=== PATIENT | female | born 1935 | race Caucasian/White ===

== ENCOUNTER 2022-07-10 10:12 | Emergency (ER) | payer OTHER, MEDICARE ==
[~2022-07-10] VITALS: Ht 152.4 cm; Wt 76.2 kg
[2022-07-10] MEDS ORDERED: ACETAMINOPHEN 325 MG TAB PO ONE (14:00)
[2022-07-10] MEDS ORDERED: HYDROCODONE/APAP 7.5MG-325MG 1 EA TAB PO STA (14:13)
[2022-07-10] MEDS ORDERED: ONDANSETRON HCL INJ 2MG/ML 2ML 2 MG/ML VIAL IV STA (14:33)
[2022-07-10] MEDS ORDERED: DEXTROSE 50% SYRINGE 50 ML IV ONE ×2 (14:41→14:45)
[2022-07-10] MEDS ORDERED: FENTANYL CITRATE/PF 100MCG/2 ML INJ IV ONE ×2 (14:45→15:30)
[2022-07-10 16:27] VITALS: BP 134/43
== END 2022-07-10 16:15 | disposition other institution (70) ==
LOC: ER 10:25
DX: S12.590A Other displaced fracture of sixth cervical vertebra, initial encounter for closed fracture (principal); W18.39XA Other fall on same level, initial encounter; Y93.01 Activity, walking, marching and hiking; Y92.89 Other specified places as the place of occurrence of the external cause; R60.9 Edema, unspecified; Z20.822 Contact with and (suspected) exposure to COVID-19
CPT/HCPCS: 36415; 70450; 72125; 72141; 72192; 73562; 73700; 82948; 99284; J3010; J7799; U0002